=== PATIENT | female | born 1985 | race Caucasian/White ===

== ENCOUNTER → 2018-02-01 | Outpatient (CLI) | payer OTHER ==
[~2018-02-01] MED LIST: DARV PO; IBUP-238 PO; METH500T3 PO
== END ==
LOC: HPND 09:32
PROVIDERS: ATTEND Obstetrics & Gynecology
DX: O35.1XX0 Maternal care for (suspected) chromosomal abnormality in fetus, not applicable or unspecified (principal); O09.32 Supervision of pregnancy with insufficient antenatal care, second trimester; Z36.2 Encounter for other antenatal screening follow-up; O44.42 Low lying placenta NOS or without hemorrhage, second trimester
CPT/HCPCS: 76805

== ENCOUNTER 2018-02-03 20:14 | Emergency (ER) | payer OTHER ==
[2018-02-03 20:17] VITALS: BP 113/56; PULSE 77; RESP 20; TEMP 97.9; O2SAT 100
[2018-02-03 20:55] LABS: BILIRUBIN, URINE NEG (NEG); BLOOD, URINE NEG (NEG); GLUCOSE,URINE NEG (NEG); KETONE, URINE NEG (NEG); NITRITE,URINE NEG (NEG); PH, URINE 5.5 (5.0-8.5); URINE COLOR YELLOW (YELLW/STRAW); URINE LEUKOCYTE ESTERASE NEG (NEG)
[2018-02-03 21:06] LABS: SQUAMOUS EPITHELIAL CELL URINE 0-5 /hpf (0-5)
--- NOTE | 2018-02-03 22:23 | PD ---
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 She said she believes she is about 4 months . She saw an OB doctor but has not established yet since she has moved down here. One previous . No problems that . Does not believe she received shots because her blood type in her previous . She states she had sex last night, this morning she had a small amount of spotting. Later today she had a small amount of mucoid discharge without blood. Minimal cramping. No urinary symptoms. Otherwise been feeling well and healthy. History Past Medical History Medical History: Denies Significant Hx Tetanus Vaccination: < 5 Years Influenza Vaccination: No LMP: SEP 15 2017 : 2 Para: 1 Past Surgical History Surgical History: No Previous Surgery Social History Alcohol Use: No Tobacco Use: No Allergies-Medications (Allergen,Severity, Reaction): Coded Allergies: No Known Allergies (Verified , 02/12/10) Reported Meds & Prescriptions Reported Meds & Active Scripts Active Motrin (Ibuprofen) 800 Mg Tab 800 Mg PO TID Reported Darvocet-N 100 (Propoxyphene Napsylate/Acetam) Tab 1 Tab PO Q4-6HPRN FOR PAIN Robaxin (Methocarbamol) 500 Mg Tab 0 PO UNKNOWN DOSE Review of Systems Except as stated in HPI: all other systems reviewed are Neg Physical Exam Narrative GENERAL: Well-appearing 32-year-old woman, no acute distress. SKIN: Focused skin assessment warm/dry. HEAD: Atraumatic. Normocephalic. CARDIOVASCULAR: Regular rate and rhythm. No murmur appreciated. RESPIRATORY: No accessory muscle use. Clear to auscultation. Breath sounds equal bilaterally. GASTROINTESTINAL: Abdomen soft, non-tender, nondistended. Hepatic and splenic margins not palpable. MUSCULOSKELETAL: No obvious deformities. : Normal external female genitalia. Minimal mucoid discharge with a little bit of blood from the cervical eyes. Little bit of cervical friability. No other significant discharge. Uterus is a little bit enlarged consistent with dates. No palpable adnexal masses. Data Data Last Documented VS Vital Signs Date Time Temp Pulse Resp B/P (MAP) Pulse Ox O2 Delivery O2 Flow Rate FiO2 02/03/18 22:31 76 16 128/72 (90) 100 02/03/18 20:17 97.9 Orders Orders Urinalysis - C+S If Indicated (02/03/18 20:22) Ed Urine Pregnancytest Poc (02/03/18 20:23) Wet Prep Profile (02/03/18 21:24) Ed Poc Ultrasound (02/03/18 21:24) Complete Rh (02/03/18 21:25) Ed Discharge Order (02/03/18 22:23) Labs Laboratory Tests Test 02/03/18 20:20 02/03/18 21:55 Urine Color YELLOW Urine Turbidity CLEAR Urine pH 5.5 Urine Specific [place] LESS/EQUAL 1.005 Urine Protein NEG mg/dL Urine Glucose (UA) NEG mg/dL Urine Ketones NEG mg/dL Urine Occult Blood NEG Urine Nitrite NEG Urine Bilirubin NEG Urine Urobilinogen 0.2 MG/DL Urine Leukocyte Esterase NEG Urine Squamous Epithelial Cells 0-5 /hpf Microscopic Urinalysis Comment CULT NOT INDICATED Clue Cells (Wet Prep) NONE SEEN Vaginal Trichomonas (Wet Prep) NONE SEEN Vaginal Yeast (Wet Prep) NONE SEEN MDM Medical Decision Making Medical Screen Exam Complete: Yes Emergency Medical Condition: Yes Differential Diagnosis IUP, vaginitis, previa, other Narrative Course Medical decision-making 32-year-old woman presents emerged from with elbow spotting. I think this is just cervical friability following intercourse. She looks well. Is no real bleeding on exam now. Bedside ultrasound reassuring. She does not recall receiving any shots. Her blood type to previous . They have other children in the car and her in a hurry to be evaluated and be allowed to leave. Will follow up on her blood type and call her back if her Rh is negative. Procedures Procedure Narrative [id number] ultrasound was performed at the bedside by me to evaluate for well-being. Salgado intrauterine measuring approximately 18 weeks 5 biparietal diameter, good heart rate 130s. Diagnosis Primary Impression: Vaginal spotting Additional Impression: Patient Instructions: General Instructions Additional Instructions: Follow-up with your OB doctor as planned. Return emerged from for any heavy vaginal bleeding, abdominal cramping, or any other new or worsening symptoms. Med/Other Pt SpecificInfo: No Change to Meds Disposition: 01 DISCHARGE HOME Condition: Timmy Abbott MD Feb 03, 2018 22:23
[2018-02-03 22:31] VITALS: BP 128/72
== END 2018-02-03 22:32 | disposition home or self-care (01) ==
LOC: PHED 20:14
DX: O26.852 Spotting complicating pregnancy, second trimester (principal); R10.9 Unspecified abdominal pain
CPT/HCPCS: 81001; 84703; 86077; 86850; 86870; 86900; 86901; 86902; 87210; 99284

== ENCOUNTER 2018-02-09 07:32 | Emergency (ER) | payer OTHER ==
[~2018-02-09] VITALS: Ht 160 cm; Wt 54.0 kg
[2018-02-09 07:37] VITALS: BP 107/51; PULSE 63; RESP 16; TEMP 97.7; O2SAT 99
[2018-02-09] MEDS ORDERED: TRICTAB PO (07:50)
--- NOTE | 2018-02-09 08:14 | PD ---
HPI Chief Complaint: Musculoskeletal Complaint Time Seen by Provider: 08:00 Travel History International Travel<30 days: No Contact w/Intl Traveler<30days: No Traveled to known affect area: No History of Present Illness HPI 32-year-old female presents emergency department with several day history of right anterior lower rib pain. Patient has no specific injury. Patient is 20 weeks . Patient states it could be from wearing a sports bra which was too tight. She states no nausea, vomiting, abdominal pain, changes in bowels or bladder. No urinary symptoms. No vaginal symptoms. Normal movement is noted. No cough, shortness of breath, or fever or chills. Pain is worse with movement and cough. Is specific to the anterior lower rib cage on the right. Pain is 8 out of 10. She has no known drug allergies. PFSH Past Medical History ?: LMP: 20 WEEKS : 2 Para: 1 Social History Alcohol Use: No Tobacco Use: No Substance Use: No Allergies-Medications (Allergen,Severity, Reaction): Coded Allergies: No Known Allergies (Verified , 02/12/10) Reported Meds & Prescriptions Reported Meds & Active Scripts Active Reported ( Vit-Ferrous Fumarate) 27 Mg Iron-1 Mg Tab 1 Tab PO DAILY Review of Systems Except as stated in HPI: all other systems reviewed are Neg General / Constitutional: No: Fever Eyes: No: Visual changes HENT: No: Headaches Cardiovascular: Positive: Chest Pain or Discomfort (See history of present illness) Respiratory: No: Cough, Shortness of Breath, Wheezing Gastrointestinal: No: Nausea, Vomiting, Diarrhea, Abdominal Pain Genitourinary: No: Dysuria Musculoskeletal: No: Pain Skin: No Rash Neurologic: No: Weakness Psychiatric: No: Depression Endocrine: No: Polydipsia Hematologic/Lymphatic: No: Easy Bruising Physical Exam Narrative GENERAL: Patient appears in no acute distress. She is able to ambulate and get up from the bed without difficulty. SKIN: Warm and dry. Normal color. Normal turgor. No rash per HEAD: Atraumatic. Normocephalic. EYES: Pupils equal and round. No scleral icterus. No injection or drainage. ENT: No nasal bleeding or discharge. Mucous membranes pink and moist. Pharynx is clear. Airways patent NECK: Trachea midline. No JVD. Supple and nontender. CARDIOVASCULAR: Regular rate and rhythm. No murmurs gallops or rubs. RESPIRATORY: No accessory muscle use. Clear to auscultation. Breath sounds equal bilaterally. Patient has tenderness along the right anterior lower costochondral region with palpation. No obvious deformity or crepitus. GASTROINTESTINAL: Abdomen soft, non-tender, nondistended. Obvious gravid uterus which is nontender. Hepatic and splenic margins not palpable. MUSCULOSKELETAL: Extremities without clubbing, cyanosis, or edema. No obvious deformities. NEUROLOGICAL: Awake and alert. No obvious cranial nerve deficits. Motor grossly within normal limits. Five out of 5 muscle strength in the arms and legs. Normal speech. PSYCHIATRIC: Appropriate mood and affect; insight and judgment normal. Data Data Last Documented VS Vital Signs Date Time Temp Pulse Resp B/P (MAP) Pulse Ox O2 Delivery O2 Flow Rate FiO2 02/09/18 07:37 97.7 63 16 107/51 (69) 99 Orders Orders Urinalysis - C+S If Indicated (02/09/18 08:06) Heart Tones (02/09/18 08:06) Acetaminophen (Tylenol) (02/09/18 08:15) Labs Laboratory Tests Test 02/09/18 08:22 Urine Color YELLOW Urine Turbidity HAZY Urine pH 7.0 Urine Specific [place] 1.017 Urine Protein NEG mg/dL Urine Glucose (UA) NEG mg/dL Urine Ketones NEG mg/dL Urine Occult Blood NEG Urine Nitrite NEG Urine Bilirubin NEG Urine Urobilinogen LESS THAN 2 mg/dL Urine Leukocyte Esterase NEG Urine WBC 1 /hpf Urine Squamous Epithelial Cells 11 /hpf Urine Amorphous Sediment RARE Urine Bacteria RARE /hpf Urine Mucus FEW /lpf Microscopic Urinalysis Comment CULT NOT INDICATED MDM Medical Decision Making Medical Screen Exam Complete: Yes Emergency Medical Condition: Yes Differential Diagnosis Costochondritis. Rib pain. Possible rib fracture. Narrative Course heart tones are normal at 145 bpm. Patient is given Tylenol 650 mg p.o. now. Urinalysis is checked to rule out UTI. Urine is unremarkable. Radiographic imaging is not felt to be warranted based on my history and physical. Patient should continue with exercise Tylenol every 6 hours as needed pain. Patient can use heat or ice as well. Patient to follow-up with her ECONOMETRICIAN as needed. Diagnosis Primary Impression: Costochondritis, acute Additional Impression: Qualified Codes: Z3A.20 - 20 weeks gestation of Patient Instructions: General Instructions, Rib Contusion (ED) Additional Instructions: heart tones are normal at 145 bpm. Patient is given Tylenol 650 mg p.o. now. Urinalysis is checked to rule out UTI. Urine is unremarkable. Radiographic imaging is not felt to be warranted based on my history and physical. Patient should continue with exercise Tylenol every 6 hours as needed pain. Patient can use heat or ice as well. Patient to follow-up with her ECONOMETRICIAN as needed. Med/Other Pt SpecificInfo: No Meds Exist/No RX given Disposition: 01 DISCHARGE HOME Condition: Stable Ray Luna Feb 09, 2018 08:14
[2018-02-09] MEDS ORDERED: ACETAMINOPHEN 325 MG TAB PO ONE (08:15)
[2018-02-09 08:57] LABS: AMORPHOUS SEDIMENT, URINE RARE; BACTERIA, URINE RARE /hpf; BILIRUBIN, URINE NEG (NEG); BLOOD, URINE NEG (NEG); GLUCOSE,URINE NEG (NEG); KETONE, URINE NEG (NEG); MUCUS URINE FEW /lpf (OCC); NITRITE,URINE NEG (NEG); SQUAMOUS EPITHELIAL CELL URINE 11 /hpf (0-5); URINE COLOR YELLOW (YELLW/STRAW); URINE LEUKOCYTE ESTERASE NEG (NEG)
== END 2018-02-09 09:49 | disposition home or self-care (01) ==
LOC: NEPD 07:32
DX: O99.89 Other specified diseases and conditions complicating pregnancy, childbirth and the puerperium (principal); M94.0 Chondrocostal junction syndrome [Tietze]; Z3A.20 20 weeks gestation of pregnancy
CPT/HCPCS: 81001; 99283